=== PATIENT | female | born 1970 | race Caucasian/White ===

== ENCOUNTER 2022-02-12 10:28 | Emergency (ER) | payer OTHER ==
[2022-02-12 10:33] VITALS: BP 142/92; PULSE 99
[2022-02-12] MEDS: Ketorolac 30 MG/ML SDV IM ONE (11:20)
== END 2022-02-12 11:40 | disposition home or self-care (01) ==
LOC: LL.ED 10:28
DX: M25.522 Pain in left elbow (principal); M25.512 Pain in left shoulder; M62.830 Muscle spasm of back; M79.602 Pain in left arm; M54.2 Cervicalgia; E11.9 Type 2 diabetes mellitus without complications; E66.9 Obesity, unspecified; F17.210 Nicotine dependence, cigarettes, uncomplicated; Z68.30 Body mass index [BMI] 30.0-30.9, adult; Z88.1 Allergy status to other antibiotic agents; Z88.5 Allergy status to narcotic agent
CPT/HCPCS: 96372; 99283; 99284; J1885

== ENCOUNTER 2022-03-09 07:34 | Emergency (ER) | payer OTHER ==
[2022-03-09] MEDS ORDERED: diphenhydrAMINE 50 MG/ML SDV IVPUSH ONE (08:38)
[2022-03-09] MEDS ORDERED: Ketorolac 30 MG/ML SDV IM ONE (08:39)
[2022-03-09] MEDS ORDERED: Metoclopramide 10 MG/2 ML SDV IVPUSH ONE (08:39)
[2022-03-09] MEDS: Sodium Chloride 0.9% 10 ML Syringe FLUSH PRN ×2 (08:46→08:50)
== END 2022-03-09 09:44 | disposition home or self-care (01) ==
LOC: LL.ED 07:34
DX: G43.909 Migraine, unspecified, not intractable, without status migrainosus (principal); F17.210 Nicotine dependence, cigarettes, uncomplicated; E11.9 Type 2 diabetes mellitus without complications; E66.9 Obesity, unspecified; Z88.5 Allergy status to narcotic agent; Z88.1 Allergy status to other antibiotic agents
CPT/HCPCS: 96372; 96374; 96375; 99283-25; J1200; J1885; J2765; J3490

== ENCOUNTER 2022-03-29 10:39 | Emergency (ER) | payer OTHER | END 2022-03-29 12:02 | disposition home or self-care (01) | LOC: LL.ED 10:39 | DX: S96.912A Strain of unspecified muscle and tendon at ankle and foot level, left foot, initial encounter (principal); E11.9 Type 2 diabetes mellitus without complications; F17.210 Nicotine dependence, cigarettes, uncomplicated; E66.9 Obesity, unspecified; Z68.30 Body mass index [BMI] 30.0-30.9, adult; Z88.5 Allergy status to narcotic agent; Z88.1 Allergy status to other antibiotic agents; X50.1XXA Overexertion from prolonged static or awkward postures, initial encounter | CPT/HCPCS: 99283 ==

== ENCOUNTER 2022-04-06 11:59 | Day surgery (SDC) | payer OTHER ==
[~2022-04-06 11:59] MED LIST: Propofol 200 MG/20 ML SDV ONE; Sodium Chloride 0.9% 10 ML Syringe FLUSH PRN
[2022-04-06] MEDS: Lactated Ringers 1,000 ML IV SCH (12:45)
[2022-04-06] MEDS ORDERED: Propofol 200 MG/20 ML SDV ONE (13:14)
[2022-04-06] MEDS ORDERED: Lidocaine 2% 100 MG/5 ML Syringe ONE (13:30)
[2022-04-06 16:21] VITALS: BP 133/80; PULSE 71
== END 2022-04-06 14:47 | disposition home or self-care (01) ==
LOC: LL.SDS 11:59
PROVIDERS: ATTEND Surgery
DX: Z12.11 Encounter for screening for malignant neoplasm of colon (principal); K21.9 Gastro-esophageal reflux disease without esophagitis; E11.65 Type 2 diabetes mellitus with hyperglycemia; E66.9 Obesity, unspecified; F17.210 Nicotine dependence, cigarettes, uncomplicated; N93.9 Abnormal uterine and vaginal bleeding, unspecified; I20.9 Angina pectoris, unspecified; E65 Localized adiposity; G43.909 Migraine, unspecified, not intractable, without status migrainosus; Z88.1 Allergy status to other antibiotic agents; Z88.5 Allergy status to narcotic agent; Z88.6 Allergy status to analgesic agent; Z79.899 Other long term (current) drug therapy; Z68.32 Body mass index [BMI] 32.0-32.9, adult
CPT/HCPCS: 82947; J2704; J7120

== ENCOUNTER → 2022-04-12 | Emergency (ER) | payer OTHER | LOC: LL.ED 18:30 | DX: R07.89 Other chest pain (principal) | CPT/HCPCS: 93005; 99284 ==

== ENCOUNTER 2022-04-24 14:47 | Emergency (ER) | payer OTHER ==
[2022-04-24] MEDS ORDERED: Ondansetron 4 MG/2 ML SDV ONE (15:54)
[2022-04-24] MEDS ORDERED: Promethazine 25 MG/ML SDV ONE (15:54)
[2022-04-24] MEDS ORDERED: HYDROmorphone 1 MG/ML Syringe ONE (15:54)
[2022-04-24] MEDS ORDERED: LORazepam 2 MG/ML SDV ONE (15:54)
[2022-04-24] MEDS ORDERED: Nitroglycerin 0.4 MG Tab.SL ONE ×3 (15:54)
[2022-05-12 09:20] LABS: CHLORIDE,CL 103 mmol/L (98-107); ESTIMATED GFR 93 mL/min (>=60); SODIUM,NA 138 mmol/L (136-145)
== END 2022-04-24 19:40 ==
LOC: LL.ED 14:47
DX: F41.9 Anxiety disorder, unspecified (principal); R07.89 Other chest pain; I10 Essential (primary) hypertension; E11.9 Type 2 diabetes mellitus without complications; Z87.891 Personal history of nicotine dependence
CPT/HCPCS: 80053; 82150; 83605; 83690; 83880; 84484; 85025; 85379; 93005; 93010; 96372; 96374; 96375; 99284; 99285-25; A9270-GY; J1170; J2060; J2405; J2550

== ENCOUNTER 2022-04-27 14:38 | Emergency (ER) | payer OTHER ==
[2022-04-27] MEDS: Aspirin 81 MG Tab.Chew ONE (15:10)
[2022-04-27 15:59] LABS: ANION GAP 11.2 meq/L (7-15); CHLORIDE,CL 104 mmol/L (98-107); SODIUM,NA 142 mmol/L (136-145)
[2022-04-27 16:00] LABS: ESTIMATED GFR 86 mL/min (>=60)
[2022-04-27] MEDS: Nitroglycerin 0.4 MG Tab.SL ONE (16:01)
[2022-04-27] MEDS ORDERED: Acetaminophen 325 MG Tab PO PRN (17:45)
[2022-04-27] MEDS ORDERED: Non-Formulary Medication 1 Each (Diphenhydramine [Benadryl] 50 MG Cap) PO SCH (20:00)
== END 2022-04-27 16:00 | disposition home or self-care (01) ==
LOC: LL.ED 14:38
DX: M94.0 Chondrocostal junction syndrome [Tietze] (principal); E66.9 Obesity, unspecified; Z68.41 Body mass index [BMI] 40.0-44.9, adult; Z88.1 Allergy status to other antibiotic agents; Z88.5 Allergy status to narcotic agent
CPT/HCPCS: 36415; 71045; 80053; 84484; 85025; 85610; 93005; 93010; 99284; 99285; A9270-GY

== ENCOUNTER 2022-07-09 11:42 | Emergency (ER) | payer OTHER ==
[2022-07-09] MEDS ORDERED: Ondansetron 4 MG/2 ML SDV IVPUSH ONE (12:11)
[2022-07-09] MEDS ORDERED: HYDROmorphone 0.5 MG/0.5 ML Syringe IVPUSH ONE (12:11)
[2022-07-09] MEDS: Sodium Chloride 0.9% 10 ML Syringe FLUSH PRN ×2 (12:24→13:03)
[2022-07-09] MEDS ORDERED: Orphenadrine 60 MG/2 ML Inj IV ONE (12:27)
[2022-07-09] MEDS ORDERED: Acetaminophen/Codeine 300-30 MG Tab PO PRN (13:32)
== END 2022-07-09 14:45 | disposition home or self-care (01) ==
LOC: LL.ED 11:42
DX: M54.41 Lumbago with sciatica, right side (principal); E66.9 Obesity, unspecified; Z68.31 Body mass index [BMI] 31.0-31.9, adult; Z91.030 Bee allergy status; Z88.1 Allergy status to other antibiotic agents; Z88.6 Allergy status to analgesic agent; Z79.899 Other long term (current) drug therapy; Z79.4 Long term (current) use of insulin; Z79.84 Long term (current) use of oral hypoglycemic drugs; W18.40XA Slipping, tripping and stumbling without falling, unspecified, initial encounter
CPT/HCPCS: 96374; 96375; 99283; J1170; J2360; J2405; J3490

== ENCOUNTER 2022-07-26 12:48 | Emergency (ER) | payer OTHER ==
[2022-07-26] MEDS ORDERED: Ketorolac 30 MG/ML SDV IM ONE (13:40)
[2022-07-26] MEDS ORDERED: Cyclobenzaprine 10 MG Tab PO ONE (13:41)
[2022-07-26] MEDS ORDERED: Glucagon,Human Recombinant 1 MG Vial IM PRN (13:41)
[2022-07-26] MEDS ORDERED: 50% Dextrose in Water 50 ML Syringe IVPUSH PRN (13:41)
[2022-07-26] MEDS ORDERED: Insulin Glarg,Human.Rec.Analog 100 Unit/ML SUBCUT ONE (13:42)
== END 2022-07-26 14:20 | disposition home or self-care (01) ==
LOC: LL.ED 12:48
DX: S76.011A Strain of muscle, fascia and tendon of right hip, initial encounter (principal); E11.9 Type 2 diabetes mellitus without complications; E66.9 Obesity, unspecified; Z68.30 Body mass index [BMI] 30.0-30.9, adult; Z91.030 Bee allergy status; Z88.5 Allergy status to narcotic agent; Z88.1 Allergy status to other antibiotic agents; Z79.4 Long term (current) use of insulin; Z79.899 Other long term (current) drug therapy; Z87.891 Personal history of nicotine dependence
CPT/HCPCS: 82947; 96372; 99283; A9270-GY; J1815-GY; J1885

== ENCOUNTER 2022-10-12 14:06 | Emergency (ER) | payer OTHER ==
[2022-10-12] MEDS ORDERED: methylPREDNISolone Sodium Succinate 40 MG/1 ML SDV IM ONE (15:19)
[2022-10-12] MEDS ORDERED: Ketorolac 30 MG/ML SDV IM ONE (15:19)
== END 2022-10-12 16:30 | disposition home or self-care (01) ==
LOC: SUPCPDRO 14:06 → LL.ED 14:06
DX: M54.50 Low back pain, unspecified (principal); G89.29 Other chronic pain; E11.9 Type 2 diabetes mellitus without complications; E66.9 Obesity, unspecified; Z87.891 Personal history of nicotine dependence; Z79.4 Long term (current) use of insulin; Z91.030 Bee allergy status; Z88.1 Allergy status to other antibiotic agents; Z88.5 Allergy status to narcotic agent; Z79.899 Other long term (current) drug therapy
CPT/HCPCS: 96372; 99283; J1885; J2920

== ENCOUNTER 2022-12-04 15:35 | Emergency (ER) | payer OTHER | END 2022-12-04 17:20 | disposition home or self-care (01) | LOC: LL.ED 15:35 | DX: M54.41 Lumbago with sciatica, right side (principal); M54.42 Lumbago with sciatica, left side; E11.9 Type 2 diabetes mellitus without complications; I25.2 Old myocardial infarction; J45.909 Unspecified asthma, uncomplicated; Z91.030 Bee allergy status; Z88.1 Allergy status to other antibiotic agents; Z88.5 Allergy status to narcotic agent; Z79.4 Long term (current) use of insulin; Z79.899 Other long term (current) drug therapy; Z72.0 Tobacco use | CPT/HCPCS: 99283; 99284 ==

== ENCOUNTER 2023-03-15 13:22 | Emergency (ER) | payer OTHER ==
[2023-03-15 14:21] LABS: BASOPHILS ABSOLUTE AUTO 0.03 K/uL (0.00-0.20); BASOPHILS PERCENT AUTO 0.4 % (0.0-2.0); EOSINOPHILS ABSOLUTE AUTO 0.39 K/uL (0.00-0.50); EOSINOPHILS PERCENT AUTO 5.5 % (0.0-5.0); HEMATOCRIT 40.9 % (34.0-46.0); HEMOGLOBIN 14.1 g/dL (11.7-15.5); LYMPHOCYTES ABSOLUTE AUTO 2.49 K/uL (0.50-3.50); LYMPHOCYTES PERCENT AUTO 35.2 % (10.0-50.0); MEAN CORPUSCULAR HGB CONC 34.5 g/dL (31.7-36.0); MONOCYTES PERCENT AUTO 5.6 % (2.0-14.0); NEUTROPHILS ABSOLUTE AUTO 3.77 K/uL (1.40-7.00); NEUTROPHILS PERCENT AUTO 53.3 % (45.0-80.0); PLATELET COUNT,PLT 181 K/uL (150-350); RED CELL DISTRIBUTION WIDTH 12.8 % (11.2-14.1); WHITE BLOOD CELL COUNT,WBC 7.1 K/uL (4.0-10.2)
[2023-03-15] MEDS ORDERED: Acetaminophen 325 MG Tab PO ONE (14:37)
[2023-03-15 14:51] LABS: PROTHROMBIN TIME 10.3 SEC (9.0-11.1)
[2023-03-15 15:12] LABS: ALBUMIN 3.7 g/dL (3.4-5.0); ANION GAP 12.4 meq/L (7-15); BILIRUBIN TOTAL 0.5 mg/dL (0.2-1.0); CARBON DIOXIDE,CO2 23.6 mmol/L (21.0-32.0); CREATININE 0.88 mg/dL (0.51-1.17); EST CRCL DRUG DOSING (CG) 67.62 mL/min; POTASSIUM,K 3.8 mmol/L (3.5-5.1); PROTEIN TOTAL,TP 6.8 g/dL (6.4-8.2)
== END 2023-03-15 16:04 | disposition home or self-care (01) ==
LOC: LL.ED 13:22
DX: K52.9 Noninfective gastroenteritis and colitis, unspecified (principal); J44.9 Chronic obstructive pulmonary disease, unspecified; E78.00 Pure hypercholesterolemia, unspecified; I10 Essential (primary) hypertension; E11.9 Type 2 diabetes mellitus without complications; F17.210 Nicotine dependence, cigarettes, uncomplicated; Z91.038 Other insect allergy status; Z88.1 Allergy status to other antibiotic agents; Z88.5 Allergy status to narcotic agent; Z79.899 Other long term (current) drug therapy; Z79.4 Long term (current) use of insulin; Z79.84 Long term (current) use of oral hypoglycemic drugs; Z90.710 Acquired absence of both cervix and uterus
CPT/HCPCS: 36415; 71045; 80053; 83690; 83880; 84484; 85025; 85610; 99285; A9270

== ENCOUNTER 2023-06-10 22:50 | Emergency (ER) | payer OTHER ==
[2023-06-10 23:22] LABS: BASOPHILS ABSOLUTE AUTO 0.03 K/uL (0.00-0.20); BASOPHILS PERCENT AUTO 0.5 % (0.0-2.0); EOSINOPHILS ABSOLUTE AUTO 0.33 K/uL (0.00-0.50); EOSINOPHILS PERCENT AUTO 5.6 % (0.0-5.0); HEMATOCRIT 40.2 % (34.0-46.0); HEMOGLOBIN 13.4 g/dL (11.7-15.5); LYMPHOCYTES ABSOLUTE AUTO 2.36 K/uL (0.50-3.50); MEAN CORPUSCULAR HGB CONC 33.3 g/dL (31.7-36.0); MEAN CORPUSCULAR VOLUME 95.9 fL (84.0-98.0); MONOCYTES PERCENT AUTO 6.8 % (2.0-14.0); NEUTROPHILS ABSOLUTE AUTO 2.78 K/uL (1.40-7.00); NEUTROPHILS PERCENT AUTO 47.1 % (45.0-80.0); PLATELET COUNT,PLT 155 K/uL (150-350); RED BLOOD CELL COUNT 4.19 M/uL (3.77-5.09); RED CELL DISTRIBUTION WIDTH 12.9 % (11.2-14.1); WHITE BLOOD CELL COUNT,WBC 5.9 K/uL (4.0-10.2)
[2023-06-10 23:39] LABS: INR 1.1 (0.9-1.1); PROTHROMBIN TIME 10.9 SEC (9.0-11.1)
[2023-06-10 23:53] LABS: ALANINE AMINOTRANSFERASE,ALT 28 U/L (12-78); ALBUMIN 3.7 g/dL (3.4-5.0); ALKALINE PHOSPHATASE 65 IU/L (46-116); ANION GAP 17.2 meq/L (7-15); ASPARTATE AMNIOTRANSFERASE,AST 18 U/L (15-37); BILIRUBIN TOTAL 0.5 mg/dL (0.2-1.0); BLOOD UREA NITROGEN,BUN 18 mg/dL (7-18); CALCIUM 8.6 mg/dL (8.5-10.1); CARBON DIOXIDE,CO2 25.2 mmol/L (21.0-32.0); CHLORIDE,CL 105 mmol/L (98-107); CREATININE 0.75 mg/dL (0.51-1.17); ESTIMATED GFR 94 mL/min (>=60); GLUCOSE RANDOM 96 mg/dL (70-99); POTASSIUM,K 3.4 mmol/L (3.5-5.1); PRO B-TYPE NATRIUR PEPT,BNPPRO 264 pg/mL (0-125); PROTEIN TOTAL,TP 6.6 g/dL (6.4-8.2); SODIUM,NA 144 mmol/L (136-145)
[2023-06-10 23:57] LABS: CORONAVIRUS COVID-19 NAA NEGATIVE (NEGATIVE); INFLUENZA A NAA NEGATIVE (NEGATIVE); INFLUENZA B NAA NEGATIVE (NEGATIVE); RESPIRATORY SYNCYTIAL VIR NAA NEGATIVE (NEGATIVE)
[2023-06-11] MEDS: Potassium Bicarbonate/Cit Ac 20 MEQ Effervescent Tab PO ONE (00:07)
== END 2023-06-11 00:30 | disposition home or self-care (01) ==
LOC: LL.ED 22:50
DX: R07.89 Other chest pain (principal); I10 Essential (primary) hypertension; E78.00 Pure hypercholesterolemia, unspecified; F17.210 Nicotine dependence, cigarettes, uncomplicated; I25.2 Old myocardial infarction; E11.9 Type 2 diabetes mellitus without complications; J44.9 Chronic obstructive pulmonary disease, unspecified; Z79.84 Long term (current) use of oral hypoglycemic drugs; Z20.822 Contact with and (suspected) exposure to COVID-19; Z79.899 Other long term (current) drug therapy; Z90.710 Acquired absence of both cervix and uterus
CPT/HCPCS: 0241U; 36415; 71046; 80053; 83880; 84484; 85025; 85610; 93005; 93010; 99284; 99285; A9270-GY

== ENCOUNTER 2023-08-21 11:58 | Emergency (ER) | payer OTHER ==
[2023-08-21] MEDS ORDERED: Sodium Chloride 0.9% 10 ML Syringe FLUSH PRN (12:15)
[2023-08-21 12:44] LABS: APPEARANCE,URINE CLEAR; BILIRUBIN,URINE NEGATIVE (NEGATIVE); COLOR,URINE AMBER; GLUCOSE,URINE NEGATIVE (NEGATIVE); KETONES,URINE NEGATIVE (NEGATIVE); LEUKOCYTE ESTERASE,URINE NEGATIVE (NEGATIVE); NITRITE,URINE NEGATIVE (NEGATIVE); OCCULT BLOOD,URINE LARGE (NEGATIVE); PH,URINE 8.5 (5.0-9.0); PROTEIN,URINE 100 mg/dL (NEGATIVE); UROBILINOGEN,URINE 0.2 E.U./dL (0.2-1.0)
[2023-08-21 12:51] LABS: RBC,URINE 50-75 /HPF; WBC,URINE 0-5 /HPF
[2023-08-21] MEDS: Phenazopyridine 95 MG Tab PO SCH (13:03)
[2023-08-21 13:08] LABS: BASOPHILS ABSOLUTE AUTO 0.03 K/uL (0.00-0.20); BASOPHILS PERCENT AUTO 0.7 % (0.0-2.0); EOSINOPHILS ABSOLUTE AUTO 0.32 K/uL (0.00-0.50); HEMATOCRIT 42.7 % (34.0-46.0); HEMOGLOBIN 14.1 g/dL (11.7-15.5); LYMPHOCYTES ABSOLUTE AUTO 1.53 K/uL (0.50-3.50); LYMPHOCYTES PERCENT AUTO 33.4 % (10.0-50.0); MEAN CORPUSCULAR HEMOGLOBIN 31.4 pg (28.2-33.3); MEAN CORPUSCULAR VOLUME 95.1 fL (84.0-98.0); MONOCYTES ABSOLUTE AUTO 0.29 K/uL (0.00-1.00); MONOCYTES PERCENT AUTO 6.3 % (2.0-14.0); NEUTROPHILS ABSOLUTE AUTO 2.41 K/uL (1.40-7.00); NEUTROPHILS PERCENT AUTO 52.6 % (45.0-80.0); PLATELET COUNT,PLT 131 K/uL (150-350); RED BLOOD CELL COUNT 4.49 M/uL (3.77-5.09); RED CELL DISTRIBUTION WIDTH 13.2 % (11.2-14.1); WHITE BLOOD CELL COUNT,WBC 4.6 K/uL (4.0-10.2)
[2023-08-21 13:20] LABS: CORONAVIRUS COVID-19 NAA NEGATIVE (NEGATIVE); INFLUENZA A NAA NEGATIVE (NEGATIVE); INFLUENZA B NAA NEGATIVE (NEGATIVE); RESPIRATORY SYNCYTIAL VIR NAA NEGATIVE (NEGATIVE)
[2023-08-21 13:23] LABS: ALANINE AMINOTRANSFERASE,ALT 15 U/L (12-78); ALBUMIN 3.5 g/dL (3.4-5.0); ALKALINE PHOSPHATASE 57 IU/L (46-116); ASPARTATE AMNIOTRANSFERASE,AST 11 U/L (15-37); BILIRUBIN TOTAL 0.7 mg/dL (0.2-1.0); BLOOD UREA NITROGEN,BUN 15 mg/dL (7-18); CALCIUM 8.1 mg/dL (8.5-10.1); CHLORIDE,CL 107 mmol/L (98-107); CREATININE 0.66 mg/dL (0.51-1.17); GLUCOSE RANDOM 118 mg/dL (70-99); POTASSIUM,K 3.8 mmol/L (3.5-5.1); PROTEIN TOTAL,TP 6.2 g/dL (6.4-8.2); SODIUM,NA 141 mmol/L (136-145)
[2023-08-21 13:25] LABS: ESTIMATED GFR 104 mL/min (>=60)
[2023-08-21] MEDS: Tamsulosin 0.4 MG Cap.ER PO ONE (14:35)
[2023-08-21] MEDS: Ondansetron 4 MG/2 ML SDV IVPUSH ONE (14:36)
[2023-08-21] MEDS: Ketorolac 15 MG/ML SDV IVPUSH ONE (14:36)
== END 2023-08-21 14:47 | disposition home or self-care (01) ==
LOC: LL.ED 11:58
DX: N20.0 Calculus of kidney (principal); E78.00 Pure hypercholesterolemia, unspecified; I25.2 Old myocardial infarction; I10 Essential (primary) hypertension; J44.9 Chronic obstructive pulmonary disease, unspecified; E11.9 Type 2 diabetes mellitus without complications; Z91.030 Bee allergy status; Z88.5 Allergy status to narcotic agent; Z88.1 Allergy status to other antibiotic agents; Z79.899 Other long term (current) drug therapy; Z79.84 Long term (current) use of oral hypoglycemic drugs
CPT/HCPCS: 0241U; 36415; 74176; 80053; 81001; 85025; 96374; 96375; 99284; 99284-25; A9270-GY; J1885; J2405

== ENCOUNTER 2023-10-18 23:16 | Emergency (ER) | payer OTHER ==
[2023-10-18 23:44] LABS: BASOPHILS ABSOLUTE AUTO 0.05 K/uL (0.00-0.20); BASOPHILS PERCENT AUTO 0.9 % (0.0-2.0); EOSINOPHILS ABSOLUTE AUTO 0.33 K/uL (0.00-0.50); HEMOGLOBIN 13.3 g/dL (11.7-15.5); LYMPHOCYTES ABSOLUTE AUTO 2.19 K/uL (0.50-3.50); LYMPHOCYTES PERCENT AUTO 39.5 % (10.0-50.0); MEAN CORPUSCULAR HEMOGLOBIN 32.3 pg (28.2-33.3); MEAN CORPUSCULAR HGB CONC 33.3 g/dL (31.7-36.0); MEAN CORPUSCULAR VOLUME 97.1 fL (84.0-98.0); MONOCYTES ABSOLUTE AUTO 0.42 K/uL (0.00-1.00); MONOCYTES PERCENT AUTO 7.6 % (2.0-14.0); NEUTROPHILS ABSOLUTE AUTO 2.55 K/uL (1.40-7.00); PLATELET COUNT,PLT 147 K/uL (150-350); RED BLOOD CELL COUNT 4.12 M/uL (3.77-5.09); RED CELL DISTRIBUTION WIDTH 13.3 % (11.2-14.1); WHITE BLOOD CELL COUNT,WBC 5.5 K/uL (4.0-10.2)
[2023-10-18 23:57] LABS: ALANINE AMINOTRANSFERASE,ALT 23 U/L (12-78); ALBUMIN 3.9 g/dL (3.4-5.0); ALKALINE PHOSPHATASE 57 IU/L (46-116); ANION GAP 10.5 meq/L (7-15); ASPARTATE AMNIOTRANSFERASE,AST 19 U/L (15-37); BILIRUBIN TOTAL 0.7 mg/dL (0.2-1.0); BLOOD UREA NITROGEN,BUN 20 mg/dL (7-18); CALCIUM 9.1 mg/dL (8.5-10.1); CARBON DIOXIDE,CO2 25.5 mmol/L (21.0-32.0); CHLORIDE,CL 105 mmol/L (98-107); CREATININE 0.68 mg/dL (0.51-1.17); GLUCOSE RANDOM 91 mg/dL (70-99); POTASSIUM,K 3.9 mmol/L (3.5-5.1); PROTEIN TOTAL,TP 6.5 g/dL (6.4-8.2); SODIUM,NA 141 mmol/L (136-145)
[2023-10-18 23:58] LABS: ESTIMATED GFR 103 mL/min (>=60)
[2023-10-19] MEDS: Take Home: Ketorolac 10 MG Tab, 4 Tab Pack PO ONE (00:11)
[2023-10-19] MEDS: Take Home: oxyCODONE HCl 5 MG Tab, 5 Tab Pack PO ONE (00:11)
== END 2023-10-19 00:15 | disposition home or self-care (01) ==
LOC: LL.ED 23:16
DX: M54.2 Cervicalgia (principal); M54.42 Lumbago with sciatica, left side; M54.6 Pain in thoracic spine; W18.30XA Fall on same level, unspecified, initial encounter; F17.210 Nicotine dependence, cigarettes, uncomplicated; E11.9 Type 2 diabetes mellitus without complications; J44.9 Chronic obstructive pulmonary disease, unspecified; I10 Essential (primary) hypertension; Z79.84 Long term (current) use of oral hypoglycemic drugs; Z79.899 Other long term (current) drug therapy; Z88.5 Allergy status to narcotic agent; Z91.030 Bee allergy status; Z88.1 Allergy status to other antibiotic agents; Z88.8 Allergy status to other drugs, medicaments and biological substances
CPT/HCPCS: 36415; 72040; 80053; 85025; 99283; A9270-GY

== ENCOUNTER 2023-12-19 08:38 | Emergency (ER) | payer OTHER ==
[2023-12-19 09:10] LABS: BASOPHILS ABSOLUTE AUTO 0.03 K/uL (0.00-0.20); BASOPHILS PERCENT AUTO 0.7 % (0.0-2.0); EOSINOPHILS ABSOLUTE AUTO 0.32 K/uL (0.00-0.50); HEMATOCRIT 42.5 % (34.0-46.0); LYMPHOCYTES ABSOLUTE AUTO 1.87 K/uL (0.50-3.50); LYMPHOCYTES PERCENT AUTO 40.9 % (10.0-50.0); MEAN CORPUSCULAR HEMOGLOBIN 32.6 pg (28.2-33.3); MEAN CORPUSCULAR HGB CONC 32.9 g/dL (31.7-36.0); MEAN CORPUSCULAR VOLUME 98.8 fL (84.0-98.0); MONOCYTES ABSOLUTE AUTO 0.38 K/uL (0.00-1.00); MONOCYTES PERCENT AUTO 8.3 % (2.0-14.0); NEUTROPHILS ABSOLUTE AUTO 1.97 K/uL (1.40-7.00); NEUTROPHILS PERCENT AUTO 43.1 % (45.0-80.0); PLATELET COUNT,PLT 146 K/uL (150-350); RED CELL DISTRIBUTION WIDTH 13.1 % (11.2-14.1); WHITE BLOOD CELL COUNT,WBC 4.6 K/uL (4.0-10.2)
[2023-12-19] MEDS: Acetaminophen 325 MG Tab PO ONE (09:29)
[2023-12-19] MEDS: Sodium Chloride 0.9% 10 ML Syringe FLUSH PRN (09:30)
[2023-12-19] MEDS: Ondansetron 4 MG/2 ML SDV IVPUSH ONE (09:31)
[2023-12-19 09:37] LABS: ALBUMIN 3.7 g/dL (3.4-5.0); ANION GAP 8.5 meq/L (7-15); BILIRUBIN TOTAL 0.4 mg/dL (0.2-1.0); CALCIUM 8.7 mg/dL (8.5-10.1); CARBON DIOXIDE,CO2 27.5 mmol/L (21.0-32.0); CREATININE 0.69 mg/dL (0.51-1.17); EST CRCL DRUG DOSING (CG) 89.58 mL/min; POTASSIUM,K 4.3 mmol/L (3.5-5.1); PROTEIN TOTAL,TP 6.5 g/dL (6.4-8.2)
[2023-12-19 09:50] LABS: PROTHROMBIN TIME 10.4 SEC (9.0-11.1)
[2023-12-19] MEDS: Aspirin 81 MG Tab.Chew PO ONE (10:06)
[2023-12-19] MEDS: Clopidogrel 75 MG Tab PO ONE (10:08)
[2023-12-19] MEDS: Iopamidol 755 Mg/ML 100 ML Bottle IVPUSH ONE ×2 (10:38→13:08)
[2023-12-19] MEDS: diphenhydrAMINE 50 MG/ML SDV IVPUSH ONE (14:25)
[2023-12-19] MEDS: Ketorolac 15 MG/ML SDV IVPUSH ONE (14:41)
[2023-12-19] MEDS: Prochlorperazine 10 MG/2 ML SDV IV ONE (14:41)
[2023-12-19] MEDS: methylPREDNISolone Sodium Succinate 125 MG/2 ML SDV IVPUSH ONE (15:17)
[2023-12-19] MEDS: Famotidine 20 MG/2 ML SDV IVPUSH ONE (15:18)
== END 2023-12-19 16:59 ==
LOC: LL.ED 08:38
DX: G43.909 Migraine, unspecified, not intractable, without status migrainosus (principal); R29.810 Facial weakness; I10 Essential (primary) hypertension; J44.9 Chronic obstructive pulmonary disease, unspecified; E11.9 Type 2 diabetes mellitus without complications; Z90.710 Acquired absence of both cervix and uterus; Z79.899 Other long term (current) drug therapy; Z79.84 Long term (current) use of oral hypoglycemic drugs; Z88.5 Allergy status to narcotic agent; Z88.6 Allergy status to analgesic agent; Z88.1 Allergy status to other antibiotic agents; Z91.030 Bee allergy status
CPT/HCPCS: 36415; 70450; 70496; 70498; 80053; 82947; 84484; 85025; 85610; 93005; 96374; 96375; 99285; A9270; J0780; J2405; Q9967; J1200; J1885; J2919; J3490

== ENCOUNTER 2024-01-11 16:02 | Emergency (ER) | payer OTHER ==
[2024-01-11] MEDS ORDERED: Sodium Chloride 0.9% 10 ML Syringe FLUSH PRN (16:03)
[2024-01-11] MEDS ORDERED: Sodium Chloride 0.9% 500 ML IV SCH (16:15)
[2024-01-11 16:41] LABS: BASOPHILS ABSOLUTE AUTO 0.04 K/uL (0.00-0.20); BASOPHILS PERCENT AUTO 0.6 % (0.0-2.0); EOSINOPHILS ABSOLUTE AUTO 0.33 K/uL (0.00-0.50); EOSINOPHILS PERCENT AUTO 5.2 % (0.0-5.0); HEMATOCRIT 42.4 % (34.0-46.0); HEMOGLOBIN 14.2 g/dL (11.7-15.5); LYMPHOCYTES ABSOLUTE AUTO 2.04 K/uL (0.50-3.50); LYMPHOCYTES PERCENT AUTO 32.3 % (10.0-50.0); MEAN CORPUSCULAR HGB CONC 33.5 g/dL (31.7-36.0); MEAN CORPUSCULAR VOLUME 98.6 fL (84.0-98.0); MONOCYTES ABSOLUTE AUTO 0.54 K/uL (0.00-1.00); MONOCYTES PERCENT AUTO 8.5 % (2.0-14.0); NEUTROPHILS ABSOLUTE AUTO 3.37 K/uL (1.40-7.00); NEUTROPHILS PERCENT AUTO 53.4 % (45.0-80.0); PLATELET COUNT,PLT 186 K/uL (150-350); RED CELL DISTRIBUTION WIDTH 12.6 % (11.2-14.1); WHITE BLOOD CELL COUNT,WBC 6.3 K/uL (4.0-10.2)
[2024-01-11] MEDS ORDERED: Iopamidol 755 Mg/ML 100 ML Bottle IVPUSH ONE ×2 (17:02)
[2024-01-11] MEDS: Aspirin 81 MG Tab.Chew PO ONE (17:03)
[2024-01-11 17:05] LABS: ALANINE AMINOTRANSFERASE,ALT 21 U/L (12-78); ALBUMIN 3.6 g/dL (3.4-5.0); ALKALINE PHOSPHATASE 68 IU/L (46-116); ANION GAP 8.5 meq/L (7-15); ASPARTATE AMNIOTRANSFERASE,AST 14 U/L (15-37); BILIRUBIN TOTAL 0.5 mg/dL (0.2-1.0); BLOOD UREA NITROGEN,BUN 20 mg/dL (7-18); CALCIUM 9.1 mg/dL (8.5-10.1); CARBON DIOXIDE,CO2 28.5 mmol/L (21.0-32.0); CHLORIDE,CL 104 mmol/L (98-107); CREATININE 0.76 mg/dL (0.51-1.17); GLUCOSE RANDOM 90 mg/dL (70-99); POTASSIUM,K 4.2 mmol/L (3.5-5.1); PROTEIN TOTAL,TP 6.8 g/dL (6.4-8.2); SODIUM,NA 141 mmol/L (136-145)
[2024-01-11 17:06] LABS: ESTIMATED GFR 92 mL/min (>=60)
[2024-01-11 17:27] LABS: PROTHROMBIN TIME 10.4 SEC (9.0-11.1); PTT,PARTIAL THROMBOPLSTIN TIME 22.4 SEC (23.6-29.8)
== END 2024-01-11 17:35 | disposition home or self-care (01) ==
LOC: LL.ED 16:02
DX: G43.909 Migraine, unspecified, not intractable, without status migrainosus (principal); I10 Essential (primary) hypertension; J44.9 Chronic obstructive pulmonary disease, unspecified; E11.9 Type 2 diabetes mellitus without complications; Z79.899 Other long term (current) drug therapy; Z79.84 Long term (current) use of oral hypoglycemic drugs; Z88.6 Allergy status to analgesic agent; Z88.5 Allergy status to narcotic agent; Z88.1 Allergy status to other antibiotic agents; Z91.030 Bee allergy status
CPT/HCPCS: 36415; 70450; 80053; 84484; 85025; 85610; 85730; 93005; 93010; 99284; 99285; A9270-GY

== ENCOUNTER 2024-04-19 22:48 | Emergency (ER) | payer OTHER ==
[2024-04-19 23:04] VITALS: BP 150/85; PULSE 77
[2024-04-19] MEDS ORDERED: Ketorolac 30 MG/ML SDV IM ONE (23:33)
[2024-04-19] MEDS: Take Home: traMADol 50 MG, 4 Tab Pack PO ONE (23:45)
[2024-04-19] MEDS: Take Home: Amoxicillin 500 MG, 6 Cap Pack PO ONE (23:45)
[2024-04-19] MEDS: traMADol 50 MG Tab PO ONE (23:46)
== END 2024-04-20 00:09 | disposition home or self-care (01) ==
LOC: LL.ED 22:48
DX: K08.89 Other specified disorders of teeth and supporting structures (principal); I10 Essential (primary) hypertension; J44.9 Chronic obstructive pulmonary disease, unspecified; E11.9 Type 2 diabetes mellitus without complications; F17.210 Nicotine dependence, cigarettes, uncomplicated; Z79.899 Other long term (current) drug therapy; Z79.84 Long term (current) use of oral hypoglycemic drugs; Z88.5 Allergy status to narcotic agent; Z88.8 Allergy status to other drugs, medicaments and biological substances; Z88.1 Allergy status to other antibiotic agents; Z91.030 Bee allergy status
CPT/HCPCS: 99282; 99283; A9270-GY

== ENCOUNTER 2024-05-17 23:23 | Emergency (ER) | payer OTHER | END 2024-05-18 00:41 | disposition home or self-care (01) | LOC: LL.ED 23:23 | DX: S09.90XA Unspecified injury of head, initial encounter (principal); I10 Essential (primary) hypertension; J44.9 Chronic obstructive pulmonary disease, unspecified; E11.9 Type 2 diabetes mellitus without complications; Z90.710 Acquired absence of both cervix and uterus; Z79.84 Long term (current) use of oral hypoglycemic drugs; Z79.899 Other long term (current) drug therapy; Z91.030 Bee allergy status; Z88.1 Allergy status to other antibiotic agents; Z88.5 Allergy status to narcotic agent; Z88.6 Allergy status to analgesic agent; W10.8XXA Fall (on) (from) other stairs and steps, initial encounter | CPT/HCPCS: 70450; 99284 ==

== ENCOUNTER 2024-07-14 13:54 | Emergency (ER) | payer OTHER | END 2024-07-14 15:30 | disposition home or self-care (01) | LOC: LL.ED 13:54 | DX: J06.9 Acute upper respiratory infection, unspecified (principal); B97.89 Other viral agents as the cause of diseases classified elsewhere; I10 Essential (primary) hypertension; J44.9 Chronic obstructive pulmonary disease, unspecified; E11.9 Type 2 diabetes mellitus without complications; Z90.710 Acquired absence of both cervix and uterus; Z79.899 Other long term (current) drug therapy; Z79.84 Long term (current) use of oral hypoglycemic drugs; Z91.030 Bee allergy status; Z88.5 Allergy status to narcotic agent; Z88.1 Allergy status to other antibiotic agents; Z88.8 Allergy status to other drugs, medicaments and biological substances | CPT/HCPCS: 87428-QW; 99283; 99284 ==

== ENCOUNTER 2024-09-23 15:26 | Emergency (ER) | payer OTHER | END 2024-09-23 17:08 | disposition home or self-care (01) | LOC: LL.ED 15:26 | DX: S49.91XA Unspecified injury of right shoulder and upper arm, initial encounter (principal); I10 Essential (primary) hypertension; J44.9 Chronic obstructive pulmonary disease, unspecified; E11.9 Type 2 diabetes mellitus without complications; Z90.710 Acquired absence of both cervix and uterus; Z88.5 Allergy status to narcotic agent; Z88.8 Allergy status to other drugs, medicaments and biological substances; Z91.030 Bee allergy status; Z79.84 Long term (current) use of oral hypoglycemic drugs; Z79.899 Other long term (current) drug therapy; X58.XXXA Exposure to other specified factors, initial encounter | CPT/HCPCS: 73030-RT; 99283 ==

== ENCOUNTER 2024-10-03 14:17 | Emergency (ER) | payer OTHER ==
[2024-10-03] MEDS: Sodium Chloride 0.9% 1,000 ML IV ONE (14:36)
[2024-10-03] MEDS: Ondansetron 4 MG/2 ML SDV IVPUSH ONE (14:36)
[2024-10-03] MEDS: Sodium Chloride 0.9% 10 ML Syringe FLUSH PRN (14:37)
[2024-10-03 15:06] LABS: BASOPHILS ABSOLUTE AUTO 0.03 K/uL (0.00-0.20); BASOPHILS PERCENT AUTO 0.6 % (0.0-2.0); EOSINOPHILS ABSOLUTE AUTO 0.29 K/uL (0.00-0.50); EOSINOPHILS PERCENT AUTO 5.4 % (0.0-5.0); HEMATOCRIT 43.6 % (34.0-46.0); IMMATURE GRAN ABSOLUTE AUTO 0.01 10^3/uL (0.00-0.04); IMMATURE GRAN PERCENT AUTO 0.2 % (0.0-0.4); LYMPHOCYTES ABSOLUTE AUTO 1.77 K/uL (0.50-3.50); LYMPHOCYTES PERCENT AUTO 33.2 % (10.0-50.0); MEAN CORPUSCULAR HEMOGLOBIN 33.8 pg (28.2-33.3); MEAN CORPUSCULAR HGB CONC 34.4 g/dL (31.7-36.0); MEAN CORPUSCULAR VOLUME 98.2 fL (84.0-98.0); MONOCYTES ABSOLUTE AUTO 0.38 K/uL (0.00-1.00); MONOCYTES PERCENT AUTO 7.1 % (2.0-14.0); NEUTROPHILS ABSOLUTE AUTO 2.85 K/uL (1.40-7.00); NEUTROPHILS PERCENT AUTO 53.5 % (45.0-80.0); PLATELET COUNT,PLT 168 K/uL (150-350); RED BLOOD CELL COUNT 4.44 M/uL (3.77-5.09); RED CELL DISTRIBUTION WIDTH 12.4 % (11.2-14.1); WHITE BLOOD CELL COUNT,WBC 5.3 K/uL (4.0-10.2)
[2024-10-03] MEDS: Aluminum Hydroxide/Magnesium Hydroxide/Simethicone Susp 30 ML Cup PO ONE (15:20)
[2024-10-03] MEDS: Lidocaine 2% Viscous Solution 15 ML UD PO ONE (15:21)
[2024-10-03 15:40] LABS: ALBUMIN 3.6 g/dL (3.4-5.0); ANION GAP 12.5 meq/L (7-15); BILIRUBIN TOTAL 0.4 mg/dL (0.2-1.0); CARBON DIOXIDE,CO2 21.5 mmol/L (21.0-32.0); CREATININE 0.58 mg/dL (0.51-1.17); EST CRCL DRUG DOSING (CG) 101.39 mL/min; MAGNESIUM 1.6 mg/dL (1.8-2.4); POTASSIUM,K 3.5 mmol/L (3.5-5.1); PROTEIN TOTAL,TP 6.9 g/dL (6.4-8.2)
[2024-10-03 15:47] LABS: AMYLASE 40 U/L (25-115); LIPASE 64 U/L (16-77)
[2024-10-03] MEDS: Pantoprazole 40 MG Tab.CR PO ONE (16:25)
== END 2024-10-03 16:37 | disposition home or self-care (01) ==
LOC: LL.ED 14:17
DX: E83.42 Hypomagnesemia (principal); R10.84 Generalized abdominal pain; I10 Essential (primary) hypertension; J44.9 Chronic obstructive pulmonary disease, unspecified; E11.9 Type 2 diabetes mellitus without complications; Z91.030 Bee allergy status; Z88.1 Allergy status to other antibiotic agents; Z88.5 Allergy status to narcotic agent; Z79.899 Other long term (current) drug therapy; Z79.84 Long term (current) use of oral hypoglycemic drugs; Z90.710 Acquired absence of both cervix and uterus
CPT/HCPCS: 36415; 74019; 80053; 82150; 83605; 83690; 83735; 85025; 96374; 99285-25; A9270-GY; J2405; J7030

== ENCOUNTER 2024-11-12 09:17 | Emergency (ER) | payer OTHER ==
[2024-11-12] MEDS: Albuterol/Ipratropium 3.0-0.5 MG/3 ML Neb Soln NEB ONE (09:51)
[2024-11-12] MEDS: Albuterol/Ipratropium 3.0-0.5 MG/3 ML Neb Soln ONE (09:52)
== END 2024-11-12 10:13 | disposition home or self-care (01) ==
LOC: LL.ED 09:17
DX: J44.1 Chronic obstructive pulmonary disease with (acute) exacerbation (principal); Z72.0 Tobacco use; I10 Essential (primary) hypertension; E11.9 Type 2 diabetes mellitus without complications; Z90.710 Acquired absence of both cervix and uterus; Z91.030 Bee allergy status; Z88.1 Allergy status to other antibiotic agents; Z88.5 Allergy status to narcotic agent; Z88.8 Allergy status to other drugs, medicaments and biological substances; Z79.899 Other long term (current) drug therapy; Z79.84 Long term (current) use of oral hypoglycemic drugs; Z79.51 Long term (current) use of inhaled steroids
CPT/HCPCS: 94640; 99284; A9270-GY

== ENCOUNTER 2025-02-02 10:44 | Emergency (ER) | payer OTHER ==
[2025-02-02] MEDS ORDERED: Sodium Chloride 0.9% 10 ML Syringe FLUSH PRN (10:55)
[2025-02-02 11:08] LABS: BASOPHILS ABSOLUTE AUTO 0.03 K/uL (0.00-0.20); BASOPHILS PERCENT AUTO 0.7 % (0.0-2.0); EOSINOPHILS ABSOLUTE AUTO 0.31 K/uL (0.00-0.50); EOSINOPHILS PERCENT AUTO 7.2 % (0.0-5.0); IMMATURE GRAN ABSOLUTE AUTO 0.00 10^3/uL (0.00-0.04); IMMATURE GRAN PERCENT AUTO 0.0 % (0.0-0.4); LYMPHOCYTES ABSOLUTE AUTO 1.39 K/uL (0.50-3.50); LYMPHOCYTES PERCENT AUTO 32.3 % (10.0-50.0); MONOCYTES ABSOLUTE AUTO 0.31 K/uL (0.00-1.00); MONOCYTES PERCENT AUTO 7.2 % (2.0-14.0); NEUTROPHILS ABSOLUTE AUTO 2.27 K/uL (1.40-7.00); NEUTROPHILS PERCENT AUTO 52.6 % (45.0-80.0); PLATELET COUNT,PLT 144 K/uL (150-350); RED BLOOD CELL COUNT 3.79 M/uL (3.77-5.09); RED CELL DISTRIBUTION WIDTH 12.6 % (11.2-14.1); WHITE BLOOD CELL COUNT,WBC 4.3 K/uL (4.0-10.2)
[2025-02-02 11:35] LABS: ALANINE AMINOTRANSFERASE,ALT 29.0 U/L (12-78); ASPARTATE AMNIOTRANSFERASE,AST 20.0 U/L (15-37); BILIRUBIN TOTAL 0.6 mg/dL (0.2-1.0); BLOOD UREA NITROGEN,BUN 14.0 mg/dL (7-18); CARBON DIOXIDE,CO2 28.3 mmol/L (21.0-32.0); CHLORIDE,CL 103.0 mmol/L (98-107); CREATININE 0.88 mg/dL (0.51-1.17); EST CRCL DRUG DOSING (CG) 68.12 mL/min; GLUCOSE RANDOM 116.0 mg/dL (70-99); POTASSIUM,K 4.0 mmol/L (3.5-5.1); PRO B-TYPE NATRIUR PEPT,BNPPRO 678.0 pg/mL (0-125); PROTEIN TOTAL,TP 6.9 g/dL (6.4-8.2); SODIUM,NA 141.0 mmol/L (136-145)
[2025-02-02 11:36] LABS: ESTIMATED GFR 77.0 mL/min (>=60)
[2025-02-02] MEDS: Magnesium Sulfat/D5W 1GM/100ML 1 GM in Premix Bag 1 BAG IV ONE (11:55)
== END 2025-02-02 13:15 | disposition home or self-care (01) ==
LOC: LL.ED 10:44
DX: R07.89 Other chest pain (principal); E83.42 Hypomagnesemia; I10 Essential (primary) hypertension; E11.9 Type 2 diabetes mellitus without complications; Z90.710 Acquired absence of both cervix and uterus; Z88.5 Allergy status to narcotic agent; Z91.030 Bee allergy status; Z88.8 Allergy status to other drugs, medicaments and biological substances; Z79.899 Other long term (current) drug therapy; Z79.84 Long term (current) use of oral hypoglycemic drugs
CPT/HCPCS: 36415; 71045; 80053; 83735; 83880; 84484; 85025; 85379; 93005; 96365; 99285; J3475; 93010; 99283

== ENCOUNTER 2025-04-13 13:26 | Emergency (ER) | payer SELFPAY ==
[2025-04-13] MEDS: Ketorolac 30 MG/ML SDV IM ONE (14:45)
[2025-04-13] MEDS: Prochlorperazine 10 MG/2 ML SDV IM ONE (14:46)
[2025-04-13] MEDS: diphenhydrAMINE 50 MG/ML SDV IM ONE (14:46)
== END 2025-04-13 14:55 | disposition home or self-care (01) ==
LOC: LL.ED 13:26
DX: J32.3 Chronic sphenoidal sinusitis (principal); I10 Essential (primary) hypertension; E11.9 Type 2 diabetes mellitus without complications; Z90.710 Acquired absence of both cervix and uterus; F17.200 Nicotine dependence, unspecified, uncomplicated; Z88.8 Allergy status to other drugs, medicaments and biological substances; Z88.5 Allergy status to narcotic agent; Z79.899 Other long term (current) drug therapy
CPT/HCPCS: 70450; 70486; 96372; 99283; 99284; J0780; J1200

== ENCOUNTER 2025-04-23 10:17 | Day surgery (SDC) | payer OTHER ==
[~2025-04-23 10:17] MED LIST changes: +Midazolam 1 MG/ML 2 ML SDV ONE
[2025-04-23] MEDS ORDERED: Ketamine 500 mg/10 ML MDV ONE (11:49)
[2025-04-23] MEDS ORDERED: Ketamine 500 mg/10 ML MDV IV ONE (11:50)
[2025-04-23] MEDS: Lactated Ringers 1,000 ML IV SCH (12:23)
[2025-04-23] MEDS ORDERED: Midazolam 1 MG/ML 2 ML SDV ONE (13:07)
== END 2025-04-23 13:40 | disposition home or self-care (01) ==
LOC: LL.SDS 10:17
PROVIDERS: ATTEND Surgery
DX: K21.00 Gastro-esophageal reflux disease with esophagitis, without bleeding (principal); K52.9 Noninfective gastroenteritis and colitis, unspecified; I10 Essential (primary) hypertension; E11.9 Type 2 diabetes mellitus without complications; F17.210 Nicotine dependence, cigarettes, uncomplicated; Z88.8 Allergy status to other drugs, medicaments and biological substances; Z88.5 Allergy status to narcotic agent; Z79.84 Long term (current) use of oral hypoglycemic drugs; Z79.82 Long term (current) use of aspirin; Z79.899 Other long term (current) drug therapy
CPT/HCPCS: 00812; J1596; J2250; J2704; J3490; J7120

== ENCOUNTER 2025-05-07 10:08 | Emergency (ER) | payer OTHER ==
[2025-05-07] MEDS: Ketorolac 15 MG/ML SDV IVPUSH ONE (10:54)
[2025-05-07] MEDS: Ondansetron 4 MG/2 ML SDV IVPUSH ONE (10:54)
[2025-05-07] MEDS: SUMAtriptan 6 MG/0.5 ML SDV SUBCUT ONE (10:55)
[2025-05-07] MEDS: diphenhydrAMINE 50 MG/ML SDV IVPUSH ONE (10:55)
[2025-05-07 11:24] LABS: BLOOD UREA NITROGEN,BUN 12.0 mg/dL (7-18); CARBON DIOXIDE,CO2 28.9 mmol/L (21.0-32.0); CHLORIDE,CL 108.0 mmol/L (98-107); CREATININE 0.76 mg/dL (0.51-1.17); EST CRCL DRUG DOSING (CG) 79.42 mL/min; GLUCOSE RANDOM 104.0 mg/dL (70-99); POTASSIUM,K 3.6 mmol/L (3.5-5.1); SODIUM,NA 146.0 mmol/L (136-145)
[2025-05-07 11:27] LABS: ESTIMATED GFR 91.0 mL/min (>=60)
[2025-05-07] MEDS: Magnesium Sulfate 4 GM/100 mL 4 GM in Premix Bag 1 BAG IV ONE (12:01)
[2025-05-07] MEDS: Sodium Chloride 0.9% 10 ML Syringe FLUSH PRN (16:09)
== END 2025-05-07 16:11 | disposition home or self-care (01) ==
LOC: LL.ED 10:08
DX: R51.9 Headache, unspecified (principal); Z88.8 Allergy status to other drugs, medicaments and biological substances; Z79.899 Other long term (current) drug therapy
CPT/HCPCS: 36415; 80048; 83735; 87428-QW; 96361; 96365; 96366; 96375; 99283-25; A9270-GY; J1200; J1885; J2405; J3475; J7030